=== PATIENT | male | born 1985 | race Two or more races ===

== ENCOUNTER 2021-02-18 08:50 | Emergency (ER) | payer MEDICAID, OTHER ==
[~2021-02-18] VITALS: Ht 180.3 cm; Wt 90.7 kg
[2021-02-18 09:37] LABS: Basophils # (auto) 0.1 10 ^3/uL (0-0.2); Basophils % (auto) 0.7 % (0.0-2.0); Eosinophils # (auto) 0.7 10 ^3/uL (0-0.8); Eosinophils % (auto) 5.1 % (0.0-7.0); Hematocrit 49.5 % (41.0-53.0); Hemoglobin 16.9 g/dL (13.5-17.5); Lymphocytes # (auto) 2.2 10 ^3/uL (0.4-5.4); Lymphocytes % (auto) 17.4 % (10.0-50.0); Mean Corpuscular Hemoglobin 29.7 pg (28.0-32.0); Mean Corpuscular Hgb Conc. 34.1 g/dL (32.0-36.0); Monocytes # (auto) 0.7 10 ^3/uL (0-1.3); Monocytes % (auto) 5.7 % (0.0-12.0); Neutrophils # (auto) 9.2 10 ^3/uL (1.6-8.6); Neutrophils % (auto) 71.1 % (37.0-80.0); Red Cell Distribution Width 13.7 % (11.8-14.3); White Blood Cell 12.9 10^3/uL (4.4-10.8)
[2021-02-18 09:54] VITALS: BP 156/81
[2021-02-18 10:08] LABS: Alkaline Phosphatase 111 U/L (45-117); Anion Gap 3 (5-15); Aspartate Aminotransferase 19 U/L (15-37); BUN/Creatinine Ratio 16.5; Blood Urea Nitrogen 13 mg/dL (7-18); Carbon Dioxide 29 mmol/L (21-32); Chloride 103 mmol/L (98-107); GFR African American 145 mL/min; GFR Non-African American 120 mL/min; Glucose 106 mg/dL (74-106); Potassium 4.4 mmol/L (3.5-5.1); Sodium 135 mmol/L (136-145)
[2021-02-18 10:09] LABS: Alanine Aminotransferase 39 U/L (16-61); Albumin 4.2 g/dL (3.4-5.0); Bilirubin, Total 0.9 mg/dL (0.2-1.0); Calcium 9.1 mg/dL (8.5-10.1); Lipase 260 U/L (73-393); Total Protein 7.3 g/dL (6.4-8.2)
[2021-02-18] MEDS ORDERED: ALUM & MAG HYDROX-SIMETH LIQ(MAALOX) 30 ML PO ONE (10:15)
[2021-02-18] MEDS ORDERED: LIDOCAINE VISCOUS 2% 15ML UD PO ONE (10:15)
[2021-02-18] MEDS ORDERED: ONDANSETRON ODT 4 MG TAB PO ONE (10:15)
[2021-02-18] MEDS ORDERED: DONNATAL 5ml ORAL Elix (BELLADONNA ALK-PHENOBARB) PO ONE (10:15)
[2021-02-18] MEDS ORDERED: FAMOTIDINE 20 MG TAB PO ONE (10:15)
[2021-02-18 11:47] LABS: Urine Bacteria NONE SEEN /hpf (None Seen); Urine Blood Negative /uL (Negative); Urine Mucus FEW (None Seen); Urine Specific Gravity 1.022 (1.001-1.035); Urine WBC 1 /hpf (0 - 3)
[2021-02-18 11:58] LABS: Amphetamine Screen, Urine NEGATIVE (NEGATIVE); Barbiturate Scree,Urine NEGATIVE (NEGATIVE); Benzodiazephine Screen, Urine NEGATIVE (NEGATIVE); Cocaine Screen, Urine NEGATIVE (NEGATIVE); Opiate Scree,Urine NEGATIVE (NEGATIVE); Phencyclidine Screen, Urine NEGATIVE (NEGATIVE)
[2021-02-18 11:59] LABS: Alcohol, Urine < 3.0 mg/dL (0-10)
[2021-02-18 12:06] LABS: Cannabinoid Screen, Urine POSITIVE (NEGATIVE)
== END 2021-02-18 10:57 | disposition home or self-care (01) ==
LOC: ER 08:50
DX: K21.9 Gastro-esophageal reflux disease without esophagitis (principal); K44.9 Diaphragmatic hernia without obstruction or gangrene; F17.210 Nicotine dependence, cigarettes, uncomplicated
CPT/HCPCS: 36415; 74176; 80053; 80307; 81001; 83690; 85025; 99284; Q0162

== ENCOUNTER 2021-08-11 06:53 | Emergency (ER) | payer SELFPAY ==
[~2021-08-11] VITALS: Ht 180.3 cm; Wt 88.9 kg
[2021-08-11 07:21] LABS: Basophils # (auto) 0.1 10 ^3/uL (0-0.2); Basophils % (auto) 0.6 % (0.0-2.0); Eosinophils # (auto) 0.1 10 ^3/uL (0-0.8); Eosinophils % (auto) 0.9 % (0.0-7.0); Hemoglobin 16.5 g/dL (13.5-17.5); Lymphocytes # (auto) 1.5 10 ^3/uL (0.4-5.4); Lymphocytes % (auto) 9.2 % (10.0-50.0); Mean Corpuscular Hemoglobin 29.1 pg (28.0-32.0); Mean Corpuscular Hgb Conc. 33.7 g/dL (32.0-36.0); Mean Corpuscular Volume 86.4 fL (80.0-100.0); Monocytes # (auto) 0.5 10 ^3/uL (0-1.3); Monocytes % (auto) 2.8 % (0.0-12.0); Neutrophils % (auto) 86.5 % (37.0-80.0); Nucleated Red Blood Cells % 0.2 %; Red Blood Cells 5.68 10^6/uL (4.5-5.90); Red Cell Distribution Width 14.1 % (11.8-14.3); White Blood Cell 16.1 10^3/uL (4.4-10.8)
[2021-08-11 07:39] LABS: BUN/Creatinine Ratio 15.8; Calcium 9.5 mg/dL (8.5-10.1); Potassium 4.3 mmol/L (3.5-5.1)
[2021-08-11 10:00] VITALS: BP 121/80
== END 2021-08-11 10:48 | disposition home or self-care (01) ==
LOC: ER 06:53
DX: S00.83XA Contusion of other part of head, initial encounter (principal); K21.9 Gastro-esophageal reflux disease without esophagitis; R55 Syncope and collapse; F17.210 Nicotine dependence, cigarettes, uncomplicated; W18.39XA Other fall on same level, initial encounter; Y93.89 Activity, other specified; Y92.89 Other specified places as the place of occurrence of the external cause; Y99.8 Other external cause status
CPT/HCPCS: 36415; 71045; 80048; 82150; 83690; 83735; 83880; 84484; 85025; 93005

== ENCOUNTER 2022-11-23 16:04 | Emergency (ER) | payer MEDICAID ==
[~2022-11-23] VITALS: Ht 182.9 cm; Wt 84.1 kg
[2022-11-23 16:30] VITALS: BP 109/70; PULSE 82; RESP 16; TEMP 98.7; O2SAT 98
== END 2022-11-23 16:42 | disposition home or self-care (01) ==
LOC: ER 16:04
DX: S91.312D Laceration without foreign body, left foot, subsequent encounter (principal); F17.210 Nicotine dependence, cigarettes, uncomplicated; F12.90 Cannabis use, unspecified, uncomplicated; X58.XXXD Exposure to other specified factors, subsequent encounter